=== PATIENT | female | born 1990 | race Caucasian/White ===

== ENCOUNTER 2019-09-28 18:50 | Emergency (ER) | payer BC ==
[~2019-09-28] VITALS: Ht 172.7 cm; Wt 68.0 kg
--- NOTE | 2019-09-28 19:15 | NUR ---
Pt comes to ER with c/o palpitations that started around 1745 today, states that she normally takes Adderall, & took cough medicine and drank an energy drink around that time. Denies any chest pain or shortness of breath. Vital signs stable. 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
[2019-09-28] MEDS ORDERED: TRINTELLIX PO (19:17)
[2019-09-28] MEDS ORDERED: AMPH15TA2 PO (19:17)
[2019-09-28] MEDS ORDERED: LORAZEPAM 1 MG TABLET ONE (19:28)
[2019-09-28] MEDS ORDERED: LORAZEPAM 0.5 MG TABLET PO ONE (19:30)
--- NOTE | 2019-09-28 19:33 | NUR ---
Patient discharged to home in stable conditon. Written and verbal after care instructions given. Patient verbalizes understanding of instructions. Pt walked out of ER in stable gait with mother who will drive pt home. Pt appears in no distress. Vital signs stable. Respirations even + Unlabored.
[2019-09-28 19:36] VITALS: BP 115/81
== END 2019-09-28 19:36 | disposition home or self-care (01) ==
LOC: ER 18:58
DX: F41.9 Anxiety disorder, unspecified (principal); R00.2 Palpitations; Z88.1 Allergy status to other antibiotic agents
CPT/HCPCS: 93005; A4663